=== PATIENT | male | born 1975 | race Caucasian/White ===

== ENCOUNTER 2018-07-16 09:48 | Outpatient (REF) | payer MEDICAID, SELFPAY ==
[2018-07-16 22:41] LABS: Anion Gap 6.7 mmol/L (3-11); BUN 11 mg/dL (7-18); CO2 31.3 mmol/L (21.0-32.0); CREATININE 1.02 mg/dL (0.70-1.30); Chloride 103 mmol/L (98-107); Cholesterol 211 mg/dL (50-200); Glucose 104 mg/dL (70-100); HDL Cholesterol 42 mg/dL (40-60); LDL CHOLESTEROL 142 mg/dL (<100); Potassium 4.4 mmol/L (3.5-5.1); Sodium 141 mmol/L (136-145); Triglyceride 191 mg/dL (30-150)
== END 2018-07-16 10:08 ==
LOC: NCHCN 09:48
PROVIDERS: PCP Specialist/Technologist Athletic Trainer; Visit Provider Specialist/Technologist Athletic Trainer
DX: I10 Essential (primary) hypertension (principal); E78.5 Hyperlipidemia, unspecified
CPT/HCPCS: 80048; 80061; 83721

== ENCOUNTER 2018-10-20 08:25 | Emergency (ER) | payer MEDICAID, SELFPAY ==
[2018-10-20 08:34] VITALS: BP 160/98; PULSE 98; RESP 90; TEMP 36.3; O2SAT 90
--- NOTE | 2018-10-20 09:13 | ED.GENADUL_ITS ---
Discharge Plan Disposition Patient Disposition: HOME Condition: Stable Discharge Details Chief Complaint: RespSymp Clinical Impression: Influenza, Asthma Primary Care Provider: Kemar Ray ED Provider: Sandy Awan Home Meds and New Rx's Prescriptions: New prednisone 20 mg tablet 60 mg PO DAILY Qty: 12 RF: 0 Continued bupropion HCl [Wellbutrin] 100 MG tablet 300 mg PO DAILY RF: 0 mirtazapine 30 MG tablet 30 mg PO HS RF: 0 lamotrigine 100 MG tablet 100 mg PO DAILY RF: 0 lisinopril 10 mg Tablet 10 mg PO DAILY RF: 0 prazosin 2 mg Capsule 4 mg PO DAILY RF: 0 aripiprazole [Abilify] 15 mg Tablet 15 mg PO DAILY RF: 0 Discharge Instructions Instructions: Albuterol (By breathing), Prednisone (By mouth), Asthma (ED), Influenza (ED) Additional Instructions: Please return immediately to the emergency department if you develop any new or worsening symptoms or if you become otherwise concerned. It is extremely important that you make an appointment to be seen as soon as possible in follow- up for this visit by your primary care doctor. Referrals: Kemar Ray [Primary Care Provider] - Medical Decision Making Gagandeep Soriano is a 42-year-old man with history of asthma, depression presenting to the emergency department with cough and shortness of breath for the past 10 days, patient denying pain other than burning chest pain that he associates with frequent coughing. On exam patient is well and nontoxic appearing, conversing normally. Benign cardiac exam, normal respiratory effort with wheezing throughout on auscultation. No posterior calf tenderness, trace lower extremity edema bilaterally. Concern for reactive airway disease, pneumonia, flu. Doubt PE or ACS. Exam/history is not consistent with acute aortic pathology, sepsis. Plan for EKG, chest x-ray, screening labs, DuoNeb. Will monitor and reassess. Patient reports feeling 100% better after DuoNeb. He reports all shortness of breath is resolved. On repeat exam patient with normal work of breathing, auscultation reveals lungs clear in all lazo. Heart rate 80. Influenza swab is positive. Chest x-ray per radiology negative for acute process. D-dimer elevated. I had a lengthy discussion with the patient regarding the significance of the elevated d-dimer, and a blood clot cannot be ruled out without CT of the chest. Patient reports that he feels much better, that his ride is waiting for him, and that he does not want to have CT performed at this time. He states that his chest pain is really only present when he is coughing. Given significant improvement in symptoms, low suspicion initially for PE, and elevated d-dimer explained by likely inflammatory process associated with influenza, I think it is reasonable to not pursue CT at this time. Patient requesting discharge home. Plan for asthma inhaler, prednisone. Given time course of illness, I do not think the patient would benefit from Tamiflu. I had a lengthy discussion with the patient regarding return to emergency department precautions, home care including importance of p.o. hydration, and importance of outpatient follow-up with his PCP as soon as possible. Patient verbalized understanding of the plan and is amenable. Medical Records Medical records reviewed: Yes I reviewed the patient's medical records. Imaging Data Radiologic Study: Attestation: I personally reviewed and interpreted this imaging study as follows: Radiologist's impression: Per radiology preliminary read CXR with no acute process Lab Data Lab results reviewed: Yes I reviewed the patient's lab results. 10/20/18 09:26 Nasopharynx Influenza Types A,B Antigen - Final Laboratory Tests Range/Units 10/20/18 10/20/18 10/20/18 10:20 10:20 10:20 WBC (4.4-10.8) k/cumm 6.02 RBC (4.50-6.00) m/cumm 5.75 Hgb (13.5-17.5) g/dL 16.7 Hct (40.0-50.0) % 50.3 H MCV (80-95) fL 87.5 MCH (27.0-33.0) pg 29.0 MCHC (32.0-36.0) g/dL 33.2 RDW (11.8-14.1) % 13.5 Plt Count (130-400) x1000/uL 169 MPV (8.0-11.0) fL 11.1 H Immature Gran % 0.2 Neutrophils % 56.1 Lymphocytes % 31.4 Monocytes % 9.3 Eosinophils % 2.8 Basophils % 0.2 Absolute Neutrophils (1.2-6.7) k/cumm 3.38 Absolute Lymphocytes (1.2-3.4) k/cumm 1.89 Absolute Monocytes (0.11-0.7) k/cumm 0.56 Absolute Eosinophils (0.0-0.7) k/cumm 0.17 Absolute Basophils (0.0-0.2) k/cumm 0.01 D-Dimer (<500) ng/mlFEU 787 H Sodium (136-145) mmol/L 139 Potassium (3.5-5.1) mmol/L 3.7 Chloride (98-107) mmol/L 95 L Carbon Dioxide (21.0-32.0) mmol/L 34.8 H Anion Gap (3-11) mmol/L 9.2 BUN (7-18) mg/dL 17 Creatinine (0.70-1.30) mg/dL 1.46 H Estimated GFR/1.73 m2 (mL/min/1.73m2) 52.45 Glucose (70-100) mg/dL 127 H Calcium (8.5-10.1) mg/dL 8.8 Total Bilirubin (0.2-1.0) mg/dL 0.4 AST (15-37) U/L 31 ALT (12-78) U/L 39 Alkaline Phosphatase (46-116) U/L 108 Troponin I (0.00-0.06) ng/mL < 0.02 Total Protein (6.4-8.2) g/dL 8.3 H Albumin (3.4-5.0) g/dL 3.6 ECG Data Attestation: I personally reviewed and interpreted this ECG (s) as follows: Interpretation: EKG shows normal sinus rhythm at 94, normal axis, no acute ischemic changes, nondiagnostic EKG HPI General Mode of arrival: ambulatory . Date/Time Provider Initiated Documentation: 10/20/18 09:12 . Limitations to Documentation: no limitations . Information obtained by: patient, RN notes reviewed and old records reviewed . HPI Narrative: Gagandeep Soriano is a 42 y/o man with history of asthma, depression presenting to the emergency department with shortness of breath and cough. Patient reports that he has had cough and shortness of breath for the past 10 or 12 days. He reports that his shortness of breath has been increasing over the past few days, and he feels short of breath when he walks just a few steps. His cough is nonproductive. He has had subjective fevers but has not measured his temperature. Patient also reports chest pain that he feels like is secondary to his cough, it is across his chest and burning in nature. Initially the pain was present only while coughing, but he states he has been coughing so much that now it is there all the time. Pain is nonexertional and nonpleuritic. He does report that his shortness of breath feels somewhat worse when he is lying flat in bed at night, although he is still sleeping with only one pillow as usual. Has been eating and drinking as usual for him. No recent travel. Patient did receive flu vaccine this year. Patient notes that he has a history of asthma, but has not had an inhaler for some time and has not been using any asthma medication at home. Related Data Home Medications Medication Instructions Recorded Confirmed bupropion HCl [Wellbutrin] 300 mg PO DAILY 05/12/14 10/20/18 lamotrigine 100 mg PO DAILY 09/28/14 10/20/18 mirtazapine 30 mg PO HS 09/28/14 10/20/18 aripiprazole [Abilify] 15 mg PO DAILY 10/20/18 10/20/18 lisinopril 10 mg PO DAILY 10/20/18 10/20/18 prazosin 4 mg PO DAILY 10/20/18 10/20/18 prednisone 60 mg PO DAILY #12 tab 10/20/18 Previous Rx's Medication Instructions Recorded prednisone 60 mg PO DAILY #12 tab 10/20/18 Allergies Allergy/AdvReac Type Severity Reaction Status Date / Time No Known Allergies Allergy Unverified 10/20/18 08:37 General Stated Complaint: RespSymp JOSE: 3 Review of Systems Review of Systems Constitutional: Reports subjective fevers Eyes: denies eye pain ENT: denies facial pain, dental pain, sore throat Cardiovascular: Reports chest pain, mild lower extremity edema over the past 2 weeks Respiratory: Reports SOB, cough GI: denies abdominal pain, vomiting, diarrhea : denies flank pain MSK: denies back pain, neck pain, arthralgias, myalgias Skin: denies rash Neuro: denies headaches, numbness, weakness PFSH Social History Smoking and Tabacco status: Current every day Exam Narrative Exam Narrative: Constitutional: well and [id number], pleasant, conversing normally HENT: head atraumatic/normocephalic/normal inspection, mucous membranes moist Eyes: conjunctiva normal, sclera normal, pupils 3mm b/l Neck: no stridor, normal ROM, trachea midline Chest: normal inspection Resp: Normal work of breathing, auditory wheeze bilaterally throughout, no rales or rhonchi Cardio: normal rate, normal rhythm, no murmur appreciated Back: normal inspection, no rash Skin: warm, dry, normal color, no rash Neuro: alert, not altered, grossly non-focal, normal tone Ext: trace edema b/l LEs, no posterior calf tenderness to palpation Psych: normal mood, normal affect, normal behavior Course Vital Signs Temperature 36.3 C L 10/20/18 08:34 Pulse 98 H 10/20/18 08:34 Respiratory Rate 90 H 10/20/18 08:34 Blood Pressure 160/98 H 10/20/18 08:34 Pulse Oximetry 90 L 10/20/18 08:34 Temperature 36.3 C L 10/20/18 08:34 Temperature Source Temporal Artery Scan 10/20/18 08:34 Pulse 98 H 10/20/18 08:34 Respiratory Rate 90 H 10/20/18 08:34 Respiratory Effort Incrsd Work of Breathing 10/20/18 09:01 Respiratory Depth Shallow 10/20/18 09:01 Blood Pressure 160/98 H 10/20/18 08:34 Blood Pressure Position Sitting 10/20/18 08:34 Pulse Oximetry 90 L 10/20/18 08:34 Oxygen Delivery Method Room Air 10/20/18 08:34 Oxygen Flow Rate 0 10/20/18 08:34 Pain Level 4 10/20/18 08:34
--- NOTE | 2018-10-20 09:21 | DI.RAD_ITS ---
SYMPTOM/DIAGNOSIS: COUGH, SOB PA AND LATERAL CHEST: Comparison is made with 12/16/16. The heart is normal in size. The lungs are clear. The mediastinal structures and pleura appear intact. CONCLUSION: Normal chest.
[2018-10-20 09:29] VITALS: PULSE 98; RESP 18; RESP 19; RESP 4; RESP 8; O2SAT 90
[2018-10-20] MEDS: Albuterol/Ipratropium 3 ML UPD VIAL UPD (09:29)
[2018-10-20 10:46] LABS: Abs Immature Grans 0.01 k/cumm (0.0-0.09); Absolute Basophil Count 0.01 k/cumm (0.0-0.2); Absolute Eosinophil Count 0.17 k/cumm (0.0-0.7); Absolute Lymphocyte Count 1.89 k/cumm (1.2-3.4); Absolute Monocyte Count 0.56 k/cumm (0.11-0.7); Absolute Neutrophil Count 3.38 k/cumm (1.2-6.7); Basophils % 0.2; Eosinophils % 2.8; HCT 50.3 % (40.0-50.0); HGB 16.7 g/dL (13.5-17.5); Immature Grans % 0.2; Lymphocytes % 31.4; Mean Corp. HGB Concentration 33.2 g/dL (32.0-36.0); Mean Corpuscular Volume 87.5 fL (80-95); Mean Platelet Volume 11.1 fL (8.0-11.0); Monocytes % 9.3; Neutrophils % 56.1; Platelet Count 169 x1000/uL (130-400); RBC 5.75 m/cumm (4.50-6.00); RBC Distribution Width 13.5 % (11.8-14.1); White Blood Cell Count 6.02 k/cumm (4.4-10.8)
[2018-10-20 10:55] LABS: ALT 39 U/L (12-78); AST 31 U/L (15-37); Albumin 3.6 g/dL (3.4-5.0); Alkaline Phosphatase 108 U/L (46-116); Anion Gap 9.2 mmol/L (3-11); BUN 17 mg/dL (7-18); Bilirubin, Total 0.4 mg/dL (0.2-1.0); CO2 34.8 mmol/L (21.0-32.0); CREATININE 1.46 mg/dL (0.70-1.30); Calcium 8.8 mg/dL (8.5-10.1); Chloride 95 mmol/L (98-107); Estimated GFR 52.45 (mL/min/1.73m2); Glucose 127 mg/dL (70-100); Potassium 3.7 mmol/L (3.5-5.1); Sodium 139 mmol/L (136-145); Total Protein 8.3 g/dL (6.4-8.2)
[2018-10-20 10:58] LABS: Troponin I < 0.02 ng/mL (0.00-0.06)
[2018-10-20 11:12] LABS: D-Dimer 787 ng/mlFEU (<500)
== END 2018-10-20 12:39 | disposition home or self-care (01) ==
PROVIDERS: Emergency Provider Student in an Organized Health Care Education/Training Program; PCP Specialist/Technologist Athletic Trainer
DX: R06.02 Shortness of breath (principal); R07.9 Chest pain, unspecified; J11.1 Influenza due to unidentified influenza virus with other respiratory manifestations; F17.210 Nicotine dependence, cigarettes, uncomplicated
CPT/HCPCS: 36415; 80053; 87449; 93005; 94640; 99285; 71046; 84484; 85025; 85379; 93010; 99284; J7620

== ENCOUNTER 2020-09-15 13:15 | Emergency (ER) | payer MEDICAID, SELFPAY ==
[2020-09-15 13:19] VITALS: BP 187/100; PULSE 91; RESP 22; TEMP 36.5; O2SAT 96
[2020-09-15] MEDS: Normal Saline 1,000 ML 1000 ML IV (13:29)
[2020-09-15] MEDS: Ketorolac 30 MG/ML VIAL 15 MG IVP (13:29)
--- NOTE | 2020-09-15 13:29 | W.ED.GENAD ---
Discharge Plan Disposition Patient Disposition: HOME Condition: Stable Discharge Details Clinical Impression: Walking pneumonia Primary Care Provider: Bart Almanza ED Provider: Jayjay Casas Home Meds and New Rx's Prescriptions: New cefpodoxime 200 mg tablet 200 mg PO BID 10 Days Qty: 20 RF: 0 Continued bupropion HCl [Wellbutrin] 100 MG tablet 300 mg PO DAILY RF: 0 mirtazapine 30 MG tablet 30 mg PO HS RF: 0 lamotrigine 100 MG tablet 100 mg PO DAILY RF: 0 lisinopril 10 mg Tablet 10 mg PO DAILY RF: 0 prazosin 2 mg Capsule 4 mg PO DAILY RF: 0 aripiprazole [Abilify] 15 mg Tablet 15 mg PO DAILY RF: 0 methadone 10 mg/mL Concentrate 50 mg PO DAILY RF: 0 Discharge Instructions Instructions: Pneumonia (ED) Additional Instructions: Your CAT scan showed evidence of left lower lobe pneumonia. Please take the antibiotics as prescribed until finished. Small, frequent fluids so that you maintain hydration. Tylenol and/or ibuprofen as needed for pain. Return for difficulty breathing or any other acute concerns. Stand Alone Forms: PENDING COVID-19 TESTING Medical Decision Making 44-year-old male presents with onset yesterday of left chest/left flank discomfort. Reports it is worse with a deep breath. No leg pain or swelling, no prolonged immobilization, no history of blood clots. No known sick contacts and no travel. He is a smoker with a chronic cough. He arrives to the ER afebrile, normal oxygenation, and some mild to moderate distress. He is tender overlying the left lateral thoracic cage. Differential diagnosis includes pulmonary embolism, ruptured pulmonary bleb, somewhat atypical presentation of renal colic. IV access established, screening labs obtained and patient given ketorolac and acetaminophen. Labs reveal normal white count of 8, hematocrit 46, platelets of 181. Chemistries unremarkable. D-dimer is elevated at 788. Given patient's complaints and location of pain, he is referred for CT imaging. CT: CT does not show PE. There are patchy groundglass nodules throughout the left lower lobe suggestive of pneumonia. I offered parenteral dose of antibiotic which the patient wishes to defer in order to get to work for his paycheck before the end of the day. He is not hypoxic. We will test him for coronavirus. I will start him on oral cephalosporin. He understands homecare as well as return precautions. Lab Data Lab results reviewed: Yes I reviewed the patient's lab results. Labs: Laboratory Results - last 24 hr 09/15/20 09/15/20 09/15/20 13:29 13:32 14:17 WBC RBC Hgb Hct MCV MCH MCHC RDW Plt Count MPV Immature Gran % Neutrophils % Lymphocytes % Monocytes % Eosinophils % Basophils % Nucleated RBC % Absolute Neutrophils Absolute Lymphocytes Absolute Monocytes Absolute Eosinophils Absolute Basophils PT INR APTT D-Dimer 788 H Sodium 140 Potassium 3.9 Chloride 103 Carbon Dioxide 30.5 Anion Gap 6.5 BUN 9 Creatinine 0.87 Estimated GFR/1.73 m2 >= 60.00 Glucose 105 Calcium 9.0 Total Bilirubin 0.9 AST 12 L ALT 24 Alkaline Phosphatase 109 Total Protein 7.4 Albumin 3.6 Urine Color Yellow Urine Clarity Clear Urine pH 7.0 Ur Specific [place] 1.025 Urine Protein Negative Urine Ketones Negative Urine Blood Negative Urine Nitrite Negative Urine Bilirubin Negative Urine Urobilinogen 0.2 Ur Leukocyte Esterase Negative Urine Glucose Negative 09/15/20 09/15/20 14:17 14:17 WBC 8.78 RBC 5.19 Hgb 15.1 Hct 46.2 MCV 89.0 MCH 29.1 MCHC 32.7 RDW 12.9 Plt Count 181 MPV 10.7 Immature Gran % 0.6 Neutrophils % 64.8 Lymphocytes % 25.2 Monocytes % 6.4 Eosinophils % 2.5 Basophils % 0.5 Nucleated RBC % 0 Absolute Neutrophils 5.70 Absolute Lymphocytes 2.21 Absolute Monocytes 0.56 Absolute Eosinophils 0.22 Absolute Basophils 0.04 PT 9.9 INR 1.0 APTT 25.2 D-Dimer Sodium Potassium Chloride Carbon Dioxide Anion Gap BUN Creatinine Estimated GFR/1.73 m2 Glucose Calcium Total Bilirubin AST ALT Alkaline Phosphatase Total Protein Albumin Urine Color Urine Clarity Urine pH Ur Specific [place] Urine Protein Urine Ketones Urine Blood Urine Nitrite Urine Bilirubin Urine Urobilinogen Ur Leukocyte Esterase Urine Glucose HPI General Mode of arrival: ambulatory. Date/Time Provider Initiated Documentation: 09/15/20 13:18. Information obtained by: patient. History of Present Illness 44 year old M presents to the emergency department with the chief complaint of Woke up yesterday with left flank and rib pain, it has been constant, described as moderate, Quality is described as dull and constant, and is localized to the left. Patient reports no radiation. Patient started experiencing this hour(s) and it has been constant. other things that improve symptom(s), (Lying flat) Other factors that worsen symptoms (Deep breath) . Patient notes other (Chronic cough. Unchanged. No production of sputum.); denies shortness of breath. Related Data Home Medications Medication Instructions Recorded Confirmed bupropion HCl [Wellbutrin] 300 mg PO DAILY 05/12/14 10/20/18 lamotrigine 100 mg PO DAILY 09/28/14 10/20/18 mirtazapine 30 mg PO HS 09/28/14 10/20/18 aripiprazole [Abilify] 15 mg PO DAILY 10/20/18 10/20/18 lisinopril 10 mg PO DAILY 10/20/18 10/20/18 prazosin 4 mg PO DAILY 10/20/18 10/20/18 cefpodoxime 200 mg PO BID 10 Days #20 tab 09/15/20 methadone 50 mg PO DAILY 09/15/20 09/15/20 Previous Rx's Medication Instructions Recorded cefpodoxime 200 mg PO BID 10 Days #20 tab 09/15/20 Allergies Allergy/AdvReac Type Severity Reaction Status Date / Time No Known Allergies Allergy Unverified 09/15/20 13:22 General Stated Complaint: FlankPain JOSE: 3 Review of Systems Narrative: Reports chronic smoker's cough that is unchanged. Eating and drinking okay. No change to urine. Denies fever or chills. No fall or injury. 8 systems reviewed and otherwise negative [facility] Social History Smoking/Tobacco Use Status: Current every day Smoking risk assessment performed?: Yes Alcohol Intake: never Drug use: Occasionally Substance use type: marijuana Do you feel safe at home: Yes Do you feel safe in your relationship?: Yes Exam Narrative Exam Narrative: GEN: awake, alert, oriented 3. Pleasant, well groomed, interactive. HEAD: Normocephalic, atraumatic ENT: Mucous membranes moist, oropharynx unremarkable, External ear exam unremarkable EYES: PERRL, EOMI NECK: Full ROM, no HERB, no menigismus CHEST/RESP: Tender left lateral thoracic cage, approximate anterior axillary line, clear to auscultation bilateral, no wheeze/rhonchi/rales CARDIOVASCULAR: RRR, no murmur, rub lula. 2+ Rad pulse bilateral ABDOMEN: Soft, nontender, no mass. +Bowel sounds EXT: Full ROM, no edema, no rash Neuro: Grossly normal neurologic exam, conversant, interactive. Psych: Speech fluent, thoughts congruent, affect normal Course Vital Signs Vital signs: Vital Signs Temperature 36.5 C 09/15/20 13:19 Pulse 91 H 09/15/20 13:19 Respiratory Rate 22 09/15/20 13:19 Blood Pressure 187/100 H 09/15/20 13:19 Pulse Oximetry 96 09/15/20 13:19 Temperature 36.5 C 09/15/20 13:19 Temperature Source Temporal Artery Scan 09/15/20 13:19 Pulse 91 H 09/15/20 13:19 Respiratory Rate 22 09/15/20 13:19 Respiratory Effort 09/15/20 13:25 Blood Pressure 187/100 H 09/15/20 13:19 Blood Pressure Position Sitting 09/15/20 13:19 Pulse Oximetry 96 09/15/20 13:19 Pain Level 9 09/15/20 13:19 Comment 09/15/20 13:19 Procedures Other Description: R brachial vein IV placed under ultrasound guidance
--- NOTE | 2020-09-15 13:30 | RT.EKG_ITS ---
APPROVED REPORT Exam: Resting ECG Patient Location: E HR:74 bpm ECG Measurements Heart Rate 74 AXIS NM 134 P 32 QRSd 99 QRS 35 QT 402 T 31 QTc 446 Conclusion Sinus rhythm...normal P axis, V-rate 60- 99
[2020-09-15 13:44] LABS: Bilirubin Negative (Negative); Blood Negative (Negative); Clarity Clear (Clear); Glucose Negative (Negative); Ketones Negative (Negative); Leukocyte Esterase Negative (Negative); Nitrite Negative (Negative); Specific Gravity 1.025 (1.005-1.025); Urobilinogen 0.2 EU/dL (Up TO 0.2)
--- NOTE | 2020-09-15 14:15 | ED.GENADUL_ITS ---
Discharge Plan Discharge Details Chief Complaint: FlankPain Primary Care Provider: Bart Almanza ED Provider: Jayjay Casas Home Meds and New Rx's Prescriptions: No Action bupropion HCl [Wellbutrin] 100 MG tablet 300 mg PO DAILY RF: 0 mirtazapine 30 MG tablet 30 mg PO HS RF: 0 lamotrigine 100 MG tablet 100 mg PO DAILY RF: 0 lisinopril 10 mg Tablet 10 mg PO DAILY RF: 0 prazosin 2 mg Capsule 4 mg PO DAILY RF: 0 aripiprazole [Abilify] 15 mg Tablet 15 mg PO DAILY RF: 0 methadone 10 mg/mL Concentrate 50 mg PO DAILY RF: 0 HPI General Mode of arrival: ambulatory . Date/Time Provider Initiated Documentation: 09/15/20 13:18 . Information obtained by: patient . History of Present Illness Quality is described as dull and constant, and is localized to the left. other things that improve symptom(s), (Lying flat) Other factors that worsen symptoms (Deep breath) . Patient notes other (Chronic cough. Unchanged. No production of sputum.); denies shortness of breath. Related Data Home Medications Medication Instructions Recorded Confirmed bupropion HCl [Wellbutrin] 300 mg PO DAILY 05/12/14 10/20/18 lamotrigine 100 mg PO DAILY 09/28/14 10/20/18 mirtazapine 30 mg PO HS 09/28/14 10/20/18 aripiprazole [Abilify] 15 mg PO DAILY 10/20/18 10/20/18 lisinopril 10 mg PO DAILY 10/20/18 10/20/18 prazosin 4 mg PO DAILY 10/20/18 10/20/18 methadone 50 mg PO DAILY 09/15/20 09/15/20 Allergies Allergy/AdvReac Type Severity Reaction Status Date / Time No Known Allergies Allergy Unverified 09/15/20 13:22 General Stated Complaint: FlankPain JOSE: 3 PFSH Social History Smoking/Tobacco Use Status: Current every day Smoking risk assessment performed?: Yes Alcohol Intake: never Drug use: Occasionally Substance use type: marijuana Do you feel safe at home: Yes Do you feel safe in your relationship?: Yes Exam Const General: cooperative and no acute distress HENMT Head: normocephalic and atraumatic Mouth: moist mucous membranes Eyes Conjunctivae: normal conjunctivae Sclera: normal sclerae Neck Neck: trachea not midline and supple Resp Auscultation: no rales, no rhonchi and no wheezes Cardio Jugular venous pressure: no JVD Rate: regular rate and not tachycardic Rhythm: regular rhythm GI Palpation: not firm, no guarding, no masses and rigid Skin General skin exam: no rashes or lesions noted Neuro General: patient alert, patient awake, patient oriented x3 and tone normal Extrem General: no edema Psych Appearance: grossly normal Mental Status: mental status grossly normal Speech and Movement: speech and movement normal Course Vital Signs Vital signs: Vital Signs Temperature 36.5 C 09/15/20 13:19 Pulse 91 H 09/15/20 13:19 Respiratory Rate 22 09/15/20 13:19 Blood Pressure 187/100 H 09/15/20 13:19 Pulse Oximetry 96 09/15/20 13:19 Temperature 36.5 C 09/15/20 13:19 Temperature Source Temporal Artery Scan 09/15/20 13:19 Pulse 91 H 09/15/20 13:19 Respiratory Rate 22 09/15/20 13:19 Respiratory Effort 09/15/20 13:25 Blood Pressure 187/100 H 09/15/20 13:19 Blood Pressure Position Sitting 09/15/20 13:19 Pulse Oximetry 96 09/15/20 13:19 Pain Level 9 09/15/20 13:19 Comment 09/15/20 13:19 Lab/Test Results Lab/Test Results: Laboratory Tests Range/Units 09/15/20 13:29 Urine Color (Yellow) Yellow Urine Clarity (Clear) Clear Urine pH (5-8) 7.0 Ur Specific [place] (1.005-1.025) 1.025 Urine Protein (Negative) mg/dL Negative Urine Ketones (Negative) mg/dL Negative Urine Blood (Negative) Negative Urine Nitrite (Negative) Negative Urine Bilirubin (Negative) Negative Urine Urobilinogen (Up TO 0.2) EU/dL 0.2 Ur Leukocyte Esterase (Negative) Negative Urine Glucose (Negative) mg/dL Negative
--- NOTE | 2020-09-15 14:16 | ED.GENADUL_ITS ---
Discharge Plan Discharge Details Chief Complaint: FlankPain Primary Care Provider: Bart Almanza ED Provider: Jayjay Casas Home Meds and New Rx's Prescriptions: No Action bupropion HCl [Wellbutrin] 100 MG tablet 300 mg PO DAILY RF: 0 mirtazapine 30 MG tablet 30 mg PO HS RF: 0 lamotrigine 100 MG tablet 100 mg PO DAILY RF: 0 lisinopril 10 mg Tablet 10 mg PO DAILY RF: 0 prazosin 2 mg Capsule 4 mg PO DAILY RF: 0 aripiprazole [Abilify] 15 mg Tablet 15 mg PO DAILY RF: 0 methadone 10 mg/mL Concentrate 50 mg PO DAILY RF: 0 HPI General Mode of arrival: ambulatory . Date/Time Provider Initiated Documentation: 09/15/20 13:18 . Information obtained by: patient . History of Present Illness Quality is described as dull and constant, and is localized to the left. other things that improve symptom(s), (Lying flat) Other factors that worsen symptoms (Deep breath) . Patient notes other (Chronic cough. Unchanged. No production of sputum.); denies shortness of breath. Related Data Home Medications Medication Instructions Recorded Confirmed bupropion HCl [Wellbutrin] 300 mg PO DAILY 05/12/14 10/20/18 lamotrigine 100 mg PO DAILY 09/28/14 10/20/18 mirtazapine 30 mg PO HS 09/28/14 10/20/18 aripiprazole [Abilify] 15 mg PO DAILY 10/20/18 10/20/18 lisinopril 10 mg PO DAILY 10/20/18 10/20/18 prazosin 4 mg PO DAILY 10/20/18 10/20/18 methadone 50 mg PO DAILY 09/15/20 09/15/20 Allergies Allergy/AdvReac Type Severity Reaction Status Date / Time No Known Allergies Allergy Unverified 09/15/20 13:22 General Stated Complaint: FlankPain JOSE: 3 PFSH Social History Smoking/Tobacco Use Status: Current every day Smoking risk assessment performed?: Yes Alcohol Intake: never Drug use: Occasionally Substance use type: marijuana Do you feel safe at home: Yes Do you feel safe in your relationship?: Yes Course Vital Signs Vital signs: Vital Signs Temperature 97.7 F 09/15/20 13:19 Pulse 91 H 09/15/20 13:19 Respiratory Rate 22 09/15/20 13:19 Blood Pressure 187/100 H 09/15/20 13:19 Pulse Oximetry 96 09/15/20 13:19 Temperature 97.7 F 09/15/20 13:19 Temperature Source Temporal Artery Scan 09/15/20 13:19 Pulse 91 H 09/15/20 13:19 Respiratory Rate 22 09/15/20 13:19 Respiratory Effort 09/15/20 13:25 Blood Pressure 187/100 H 09/15/20 13:19 Blood Pressure Position Sitting 09/15/20 13:19 Pulse Oximetry 96 09/15/20 13:19 Pain Level 9 09/15/20 13:19 Comment 09/15/20 13:19 Lab/Test Results Lab/Test Results: Laboratory Tests Range/Units 09/15/20 13:29 Urine Color (Yellow) Yellow Urine Clarity (Clear) Clear Urine pH (5-8) 7.0 Ur Specific [place] (1.005-1.025) 1.025 Urine Protein (Negative) mg/dL Negative Urine Ketones (Negative) mg/dL Negative Urine Blood (Negative) Negative Urine Nitrite (Negative) Negative Urine Bilirubin (Negative) Negative Urine Urobilinogen (Up TO 0.2) EU/dL 0.2 Ur Leukocyte Esterase (Negative) Negative Urine Glucose (Negative) mg/dL Negative
[2020-09-15 14:26] LABS: Abs Immature Grans 0.05 10^3/uL (0.0-0.06); Absolute Basophil Count 0.04 10^3/uL (0.0-0.2); Absolute Eosinophil Count 0.22 10^3/uL (0.0-0.7); Absolute Lymphocyte Count 2.21 10^3/uL (1.2-3.4); Absolute Monocyte Count 0.56 10^3/uL (0.1-0.8); Basophils % 0.5; Eosinophils % 2.5; HCT 46.2 % (40.0-50.0); HGB 15.1 g/dL (13.5-17.5); Immature Grans % 0.6; Lymphocytes % 25.2; MCH 29.1 pg (27.0-33.0); MCHC 32.7 % (32.0-36.0); MPV 10.7 fL (8.0-11.0); Monocytes % 6.4; Neutrophils % 64.8; Nucleated RBC 0 %; Platelet Count 181 10^3/uL (130-400); RBC 5.19 10^6/uL (4.36-5.78); RDW 12.9 % (11.8-14.1); RDW-SD 42.2 fL; WBC 8.78 10^3/uL (4.4-10.8)
[2020-09-15 14:40] LABS: Prothrombin Time 9.9 sec (9.3-11.0)
[2020-09-15 14:42] LABS: ALT 24 U/L (16-63); AST 12 U/L (15-37); Albumin 3.6 g/dL (3.4-5.0); Alkaline Phosphatase 109 U/L (46-116); Anion Gap 6.5 mmol/L (3-11); BUN 9 mg/dL (7-18); Bilirubin, Total 0.9 mg/dL (0.2-1.0); CO2 30.5 mmol/L (21.0-32.0); CREATININE 0.87 mg/dL (0.70-1.30); Chloride 103 mmol/L (98-107); Glucose 105 mg/dL (74-106); Potassium 3.9 mmol/L (3.5-5.1); Sodium 140 mmol/L (136-145); Total Protein 7.4 g/dL (6.4-8.2)
[2020-09-15 14:52] LABS: PTT Activated 25.2 sec (21.0-27.5)
[2020-09-15] MEDS: ACETAMINOPHEN 1,000 MG/100 ML BTL 400 MG IVPB (15:01)
[2020-09-15 15:13] LABS: D-Dimer 788 ng/mlFEU (<500)
--- NOTE | 2020-09-15 15:15 | DI.CT_ITS ---
EXAM: CT CHEST PE ABD PELVIS W CLINICAL HISTORY: L flank/CHest pain, elev ddimer. TECHNIQUE: Imaging Protocol: Axial CT angiography was performed with multi-slice acquisition and mu lti-planar and/or 3D reconstructions. CONTRAST MATERIAL: Intravenous: Omnipaque 350 Contrast volume:100 ml COMPARISON: CR XR CHEST 2V PA LATERAL from 10/20/2018 FINDINGS: CHEST: Pulmonary Arteries: No evidence of filling defect to suggest pulmonary emboli. Tracheobronchial tree: Patent where visualized. Mediastinum and Liliana: No dominant adenopathy or fluid collection. Pulmonary parenchyma: Pulmonary parenchyma: No consolidation or dominant measurable mass. Mild centrilobular emphysema. Mil d lingular atelectasis. Patchy infiltrates in the peripheral region left lower lobe. distortion. Pleura: No effusion or pneumothorax. Heart: The heart is not dilated. No coronary artery calcifications are seen. Aorta: Thoracic aorta non-dilated. Bones: Degenerative changes lower thoracic spine ABDOMEN: Liver: Mild hepatic steatosis. No measurable mass. Portal, Superior Mesenteric, and Splenic Veins: Unremarkable. Gallbladder and Biliary Tract: No radiodense calculus or dilation. Pancreas: Normal density, no abnormal calcifications or inflammatory process. Spleen: Normal. Adrenals: No masses seen. Kidneys: Normal size, contour and axis. No radiodense stones or obstructive uropathy. No masses seen. Abdominal Aorta: Abdominal portion non-dilated. Bowel: No obstruction or bowel wall thickening. Appendix is unremarkable. Mild diverticulosis. Peritoneal Cavity: No ascites, collection or mesenteric inflammatory response. Lymph Nodes: Within normal limits. Bones: Degenerative disc changes greatest at L4-5 and L5-S1. Soft Tissues: Unremarkable. PELVIS: Bladder: Symmetric distention, no gross wall thickening. Reproductive Organs: Unremarkable as visualized. Lymph Nodes: Within normal limits. Bones: Within normal limits. IMPRESSION: 1. No evidence of pulmonary embolism. Nonspecific left lower lobe infiltrates. 2. No acute abdominal or pelvic process. RADIATION DOSE DELIVERED: LINK-TO-SR Total DLP 1,919.17mGy.cm Total DLP DATA REPOSITORY: All CT scans at this facility are submitted to the National Radiology Data Registry (NRDR) Dose Index Registry (DIR) with the [employer] (ACR). RADIATION OPTIMIZATION: All CT scans at this facility use at least one of these dose optimization te chniques: automated exposure control; mA and/or kV adjustment per patient size (includes targeted exa ms where dose is matched to clinical indication); or iterative reconstruction.
[2020-09-15 15:30] VITALS: BP 132/72; PULSE 67; RESP 17; TEMP 37.1; O2SAT 93
[2020-09-15] MEDS: Omnipaque 350 MG/ML 100 ML BTL IJ (15:43)
[2020-09-15] MEDS: Normal Saline - Diluent 50 ML VIAL IV (15:43)
[2020-09-15] MEDS: Normal Saline Flush 10 ML SYR IVP (15:44)
--- NOTE | 2020-09-15 16:41 | DI.VRAD_ITS ---
PROCEDURE INFORMATION: Exam: CT Angiography Chest With Contrast Exam date and time: 09/15/2020 3:28 PM Age: 44 years old Clinical indication: Other: L flank/chest pain, elev ddimer TECHNIQUE: Imaging protocol: Computed tomographic angiography of the chest with intravenous contrast. 3D rendering (Not supervised by radiologist): MIP and/or 3D reconstructed images were created by the technologist. Contrast material: OMNIPAQUE 350; Contrast volume: 100 ml; Contrast route: INTRAVENOUS (IV); COMPARISON: CR XR CHEST 2V PA LATERAL 10/20/2018 9:48 AM FINDINGS: Pulmonary arteries: Contrast fills the pulmonary artery and its branch vessels satisfactorily. No intraluminal filling defect to suggest pulmonary embolism. Aorta: Unremarkable. No aortic aneurysm. No aortic dissection. Lungs: Mild centrilobular emphysema. Lingular atelectasis. Patchy peripheral ground-glass opacities throughout the left lower lobe suggestive of an atypical pneumonia. Pleural space: Unremarkable. No pneumothorax. No pleural effusion. Heart: Unremarkable. No cardiomegaly. No pericardial effusion. Lymph nodes: Bilateral reactive hilar and right paratracheal mediastinal lymph nodes. Bones/joints: Unremarkable. No acute fracture. Soft tissues: Unremarkable. IMPRESSION: 1. No pulmonary embolism. 2. Patchy ground-glass nodules throughout the left lower lobe suggestive of an atypical pneumonia.Imaging features can be seen with COVID-19 pneumonia, though are nonspecific and can occur with a variety of infectious and noninfectious processes. (Reference: Shady) REFERENCES: Shady Velazquez et al., Radiological Society of [place] Expert Consensus Statement on Reporting Chest CT Findings Related to COVID-19. Endorsed by the Society of Thoracic Radiology, the [employer], and RSNA. Published December 01, 2019. PROCEDURE INFORMATION: Exam: CT Angiography Abdomen With Contrast Exam date and time: 09/15/2020 3:28 PM Age: 44 years old Clinical indication: Other: L flank/chest pain, elev ddimer TECHNIQUE: Imaging protocol: Computed tomographic angiography images of the abdomen with intravenous contrast material. 3D rendering (Not supervised by radiologist): MIP and/or 3D reconstructed images were created by the technologist. Contrast material: OMNIPAQUE 350; Contrast volume: 100 ml; Contrast route: INTRAVENOUS (IV); COMPARISON: CR XR CHEST 2V PA LATERAL 10/20/2018 9:48 AM FINDINGS: Aorta: No aortic aneurysm. No aortic dissection. Celiac trunk and mesenteric arteries: No occlusion or significant stenosis. Renal arteries: No occlusion or significant stenosis. Liver: Mild generalized hepatic steatosis. Gallbladder and bile ducts: Normal. No calcified stones. No ductal dilation. Pancreas: Normal. No ductal dilation. Spleen: Normal. No splenomegaly. Adrenals: Normal. No mass. Kidneys and ureters: No renal, ureteric, or urinary bladder calculus. No hydronephrosis. Stomach and bowel: Scattered colonic diverticula. No colonic diverticulitis. Appendix: Normal appendix. No appendicitis. Lymph nodes: Unremarkable. No enlarged lymph nodes. IVC, bilateral iliac veins and visualized bilateral common femoral veins are patent. No deep venous thromboses. Intraperitoneal space: Unremarkable. No free air. No significant fluid collection. Bones/joints: Unremarkable. No acute fracture. No dislocation. Soft tissues: Unremarkable. IMPRESSION: 1. No acute abdominal or pelvic finding. 2. Mild generalized hepatic steatosis. Dictated and Authenticated by: Chang Kumar MD. Ordering:CINDA Ro MD
--- NOTE | 2020-09-15 16:50 | NUR.NOTE ---
Nursing Note: Referral faxed to PCP for follow up. Anna Marie Garcia
[2020-09-15] MEDS: Cefpodoxime 200 MG TAB PO (17:04)
[2020-09-16 15:50] LABS: COVID-19 RT-PCR Result NEGATIVE (Negative)
--- NOTE | 2020-09-17 07:54 | NUR.NOTE ---
Nursing Note: Message left to call ER for a test result
--- NOTE | 2020-09-19 08:22 | NUR.NOTE ---
09/19/20 @ 0820, after identity verification, relayed negative covid test results to him.
== END 2020-09-15 17:02 | disposition home or self-care (01) ==
PROVIDERS: Emergency Provider Emergency Medicine; PCP Physician Assistant Medical
DX: J18.8 Other pneumonia, unspecified organism (principal); R79.1 Abnormal coagulation profile; F17.210 Nicotine dependence, cigarettes, uncomplicated; Z03.818 Encounter for observation for suspected exposure to other biological agents ruled out
CPT/HCPCS: 36415; 71275; 74177; 80053; 93005; 96361; 96365; 96375; 99285; U0003; 81003; 85025; 85379; 85610; 85730; 93010; 99284; J0131; J1885; J3490

== ENCOUNTER 2020-12-11 13:57 | Emergency (ER) | payer MEDICAID, SELFPAY ==
[2020-12-11 14:02] VITALS: BP 157/107; PULSE 82; RESP 16; TEMP 36; O2SAT 96
--- NOTE | 2020-12-11 14:28 | W.ED.GENAD ---
Discharge Plan Disposition Patient Disposition: HOME Condition: Stable Discharge Details Clinical Impression: Headache, Hypertension Primary Care Provider: Bart Almanza ED Provider: Jovanna Celeste Home Meds and New Rx's Prescriptions: No Action methadone 10 mg/mL Concentrate 55 mg PO DAILY RF: 0 Discharge Instructions Instructions: Heart Healthy Diet (ED), Hypertension (ED), General Headache (ED) Additional Instructions: Follow up with primary care provider in 3-5 days. Return to ED sooner if any worsening or concerns. Increase oral fluids. Take nausea medications as directed. Please take Tylenol or Ibuprofen with food every 4-6 hours as needed for pain and swelling. You may also try Excedrin Migraine [id number]. Stand Alone Forms: Work Release Referrals: Bart Almanza PA [Primary Care Provider] - 1 week (HTN, Headaches) Discharge Data Discharge Date/Time-TO BE ENTERED AT DEPARTURE: 12/11/20 15:19 Medical Decision Making 45-year-old male presents to the ER with chief complaint left temporal headache which began on Friday. He denies any fever chills, no nuchal rigidity, he does have a past medical history of migraines he states that this feels similar to his previous migraines. He denies any nausea vomiting no blurry vision. Positive sensitivity to light and sound. He does take methadone daily. He states he did not take any medication prior to arrival. Zofran ODT 4 mg ordered and Toradol 10 mg p.o. ordered. 1458: Patient reevaluation, continues to be alert and oriented x4 alert and oriented in no acute distress. Recheck blood pressure is 149/107. He reports his pain is a 5 out of 10. He does have a primary care in [facility], he states that he has not taken blood pressure medications for approximately a year. 1 he is requesting a work note for today. He reports being on lisinopril previously. Discussed risks of having high blood pressure and follow-up with PCP he verbalizes understanding at this time. HPI General Mode of arrival: ambulatory. Date/Time Provider Initiated Documentation: 12/11/20 14:13. Limitations to Documentation: no limitations. Information obtained by: patient. HPI Narrative: 45-year-old male presents to the ER with chief complaint left temporal headache which began on Friday. He denies any fever chills, no nuchal rigidity, he does have a past medical history of migraines he states that this feels similar to his previous migraines. He denies any nausea vomiting no blurry vision. Positive sensitivity to light and sound. He does take methadone daily. He states he did not take any medication prior to arrival. Related Data Home Medications Medication Instructions Recorded Confirmed methadone 55 mg PO DAILY 09/15/20 12/11/20 Allergies Allergy/AdvReac Type Severity Reaction Status Date / Time No Known Allergies Allergy Unverified 12/11/20 14:09 General Stated Complaint: Headache JOSE: 3 Review of Systems Narrative: Constitutional: Negative for weight loss, alert and oriented, well groomed, normal body habitus, appears comfortable. HEENT: Denies trauma, blurry vision, nasal discharge, sore throat, trouble swallowing. Chest: Denies chest pain, palpitations, irregular rhythm, hypertension. Respiratory: Denies Shortness of breath, cough, hemoptysis. GI: Denies abdominal pain, nausea, vomiting, diarrhea, constipation. : Denies dysuria, hematuria, flank pain, rectal bleeding. Neuro: Denies dizziness, blurry vision, weakness, syncope, or facial numbness. Hematologic: Denies easy bruising, intolerance to heat or cold, hair loss. [facility] Social History Smoking/Tobacco Use Status: Current every day Tobacco Type: cigarettes Smoking risk assessment performed?: Yes Alcohol Intake: never Drug use: Occasionally Substance use type: marijuana Do you feel safe at home: Yes Do you feel safe in your relationship?: Yes Exam Narrative Exam Narrative: Constitutional: Alert and oriented x3. Appears stated age. Normal body habitus. Head: Normocephalic, no trauma. Eyes: Pupils PERRLA, Red reflex noted, EOM's intact. Eyelids symmetrical without lesions, discharge, or swelling. ENT: Bilateral TM's WNL, External ear normal to inspection, no mastoid TTP, swelling, or erythema, Nasal turbinates WNL, no nasal discharge. Poor dentition, Posterior pharynx WNL, no exudate. Chest: RRR, Normal S1, S2, distal pulses intact. Resp: Lungs clear to auscultation bilaterally, no wheezes, rales, or rhonchi. Musculoskeletal: Normal gait, 5/5 strength to all four extremities. Skin: No suspicious rashes or lesions. Capillary refill less than 2 sec. Neurologic: Cranial nerves II-XII intact. Alert and oriented x 3. DTR's intact. Complaining of left temporal headache, no nuchal rigidity. Hematologic/Lymphatic: No ecchymosis, no lymphadenopathy. Course Vital Signs Vital signs: Vital Signs Temperature 36.0 C L 12/11/20 14:02 Pulse 82 12/11/20 14:02 Respiratory Rate 16 12/11/20 14:02 Blood Pressure 157/107 H 12/11/20 14:02 Pulse Oximetry 96 12/11/20 14:02 Temperature 36.0 C L 12/11/20 14:02 Temperature Source Skin 12/11/20 14:02 Pulse 82 12/11/20 14:02 Respiratory Rate 16 12/11/20 14:02 Respiratory Effort 12/11/20 14:07 Blood Pressure 157/107 H 12/11/20 14:02 Blood Pressure Position Sitting 12/11/20 14:02 Pulse Oximetry 96 12/11/20 14:02 Oxygen Delivery Method Room Air 12/11/20 14:02 Oxygen Flow Rate 0 12/11/20 14:02 Pain Level 5 12/11/20 14:02
[2020-12-11] MEDS: Ondansetron O.D.T. 4 MG TABEF PO (14:34)
[2020-12-11] MEDS: Ketorolac 10 MG TAB PO (14:35)
[2020-12-11] MEDS: Ondansetron O.D.T. 4 MG TABEF, 3 TABS/BTL PO (15:18)
== END 2020-12-11 15:19 | disposition home or self-care (01) ==
PROVIDERS: Emergency Provider Registered Nurse Emergency; PCP Physician Assistant Medical
DX: G43.809 Other migraine, not intractable, without status migrainosus (principal); I10 Essential (primary) hypertension
CPT/HCPCS: 99283

== ENCOUNTER 2021-07-02 14:08 | Emergency (ER) | payer MEDICAID, SELFPAY ==
[2021-07-02] VITALS (16 sets, daily range): BP systolic 147–178; BP diastolic 82–110; PULSE 60–83; RESP 16; TEMP 36.3–36.7; O2SAT 95–99
[2021-07-02] MEDS: Normal Saline 1,000 ML 1000 ML IV (14:49)
[2021-07-02 14:56] LABS: Abs Immature Grans 0.02 10^3/uL (0.0-0.06); Absolute Basophil Count 0.04 10^3/uL (0.0-0.2); Absolute Eosinophil Count 0.29 10^3/uL (0.0-0.7); Absolute Lymphocyte Count 2.56 10^3/uL (1.2-3.4); Absolute Monocyte Count 0.44 10^3/uL (0.1-0.8); Absolute Neutrophil Count 4.25 10^3/uL (1.2-6.7); Basophils % 0.5; Eosinophils % 3.8; HCT 43.3 % (40.0-50.0); HGB 14.2 g/dL (13.5-17.5); Immature Grans % 0.3; Lymphocytes % 33.7; MCH 30.2 pg (27.0-33.0); MCHC 32.8 % (32.0-36.0); MCV 92.1 fL (80-95); Monocytes % 5.8; Neutrophils % 55.9; Nucleated RBC 0 %; Platelet Count 196 10^3/uL (130-400); RDW 12.8 % (11.8-14.1); RDW-SD 43.5 fL
[2021-07-02] MEDS: Prochlorperazine 10 MG/2 ML VIAL 5 MG IVP (14:56)
[2021-07-02] MEDS: ACETAMINOPHEN 1,000 MG/100 ML BTL 400 MG IVPB (14:58)
[2021-07-02 15:08] LABS: ALT 30 U/L (16-63); AST 14 U/L (15-37); Albumin 3.7 g/dL (3.4-5.0); Alkaline Phosphatase 122 U/L (46-116); Anion Gap 5.9 mmol/L (3-11); BUN 11 mg/dL (7-18); Bilirubin, Total 0.4 mg/dL (0.2-1.0); CO2 32.1 mmol/L (21.0-32.0); Calcium 8.5 mg/dL (8.5-10.1); Chloride 106 mmol/L (98-107); Glucose 108 mg/dL (74-106); Potassium 3.9 mmol/L (3.5-5.1); Sodium 144 mmol/L (136-145); Total Protein 6.8 g/dL (6.4-8.2)
--- NOTE | 2021-07-02 16:02 | W.ED.GENAD ---
Discharge Plan Disposition Patient Disposition: HOME Condition: Stable Discharge Details Clinical Impression: Headache Primary Care Provider: Bart Almanza ED Provider: Crystal Toure Home Meds and New Rx's Prescriptions: New prochlorperazine maleate [Compazine] 10 mg tablet 10 mg PO Q6H PRNQty: 10 RF: 0 Continued methadone 10 mg/mL Concentrate 55 mg PO DAILY RF: 0 Discharge Instructions Instructions: General Headache (ED) Additional Instructions: Call your doctor tomorrow to schedule a follow-up appointment I have also listed neurology for you to follow-up regarding your headache You may need to go back on your blood pressure medication, please have this rechecked You may take the Compazine with headache, every 8 hours You may also take ibuprofen 600 mg and Tylenol 650 mg We did not do a CT of your head today, if you have recurrent headache, I do recommend imaging Your diagnostic labs are within normal limits, your blood pressure is mildly elevated, this should be rechecked by your primary care doctor within the next week, I recommend calling them as you may need to go back on your lisinopril Stand Alone Forms: Work Release Referrals: Bart Almanza PA [Primary Care Provider] - Vicky Tanner MD [ [facility] STAFF PHYSICIAN] - Discharge Data Discharge Date/Time-TO BE ENTERED AT DEPARTURE: 07/02/21 16:35 Medical Decision Making Patient is completely pain-free after typical migraine cocktail, request discharge home, has not received head CT, I think reasonable He has not received any opiate analgesia He sent a prescription for Compazine for home He is discharged home in stable condition with nonfocal neurological exam and stable vitals He is referred to neurology in the outpatient setting and back to his primary care physician His blood pressure was mildly elevated evaluation, there is no evidence of hypertensive emergency He will need close outpatient reassessment of his blood pressure Diagnostic labs not show acute abnormality Medical Records Medical records reviewed: Yes I reviewed the patient's medical records. Lab Data Lab results reviewed: Yes I reviewed the patient's lab results. HPI General Mode of arrival: ambulatory. Date/Time Provider Initiated Documentation: 07/02/21 14:28. Limitations to Documentation: no limitations. Information obtained by: patient. HPI Narrative: This 45-year-old male presents for evaluation of headache. Denies chest pain or shortness of breath. Denies dizziness or weakness. Denies any stiff neck or vision change. Denies fever or chills. Denies cough. Has attempted Tylenol at home without alleviation in symptoms. States that he was previously prescribed medication for headache but has not been able to fill it as insurance will cover it. He have been previously told that he has migraine headaches. He denies any strength or sensation change. Related Data Home Medications Medication Instructions Recorded Confirmed methadone 55 mg PO DAILY 09/15/20 07/02/21 prochlorperazine maleate 10 mg PO Q6H PRN #10 tab 07/02/21 [Compazine] Previous Rx's Medication Instructions Recorded prochlorperazine maleate 10 mg PO Q6H PRN #10 tab 07/02/21 [Compazine] Allergies Allergy/AdvReac Type Severity Reaction Status Date / Time No Known Allergies Allergy Unverified 07/02/21 14:13 General Stated Complaint: Headache JOSE: 2 Review of Systems Narrative: Review of systems obtained x7 and negative aside from where indicated in HPI [facility] Social History Smoking/Tobacco Use Status: Current every day Tobacco Type: cigarettes Smoking risk assessment performed?: Yes Alcohol Intake: never Drug use: Occasionally Substance use type: marijuana Do you feel safe at home: Yes Do you feel safe in your relationship?: Yes Exam Const General: cooperative and no acute distress Eyes Pupils: PERRL Resp Effort & Inspection: normal respiratory effort Auscultation: clear to auscultation bilaterally Cardio Rate: regular rate Rhythm: regular rhythm GI Inspection: normal to inspection Auscultation: normal bowel sounds Skin General skin exam: no rashes or lesions noted Neuro General: patient alert and patient oriented x3 Cranial Nerves: CN's II-XI intact bilaterally Gait: normal gait Motor: muscle tone normal throughout and strength 5/5 throughout Sensory Exam: no sensory deficits noted Psych Appearance: grossly normal Course Vital Signs Vital signs: Vital Signs Temperature 36.7 C 07/02/21 14:11 Pulse 83 07/02/21 14:11 Respiratory Rate 16 07/02/21 14:11 Blood Pressure 177/106 H 07/02/21 14:11 Pulse Oximetry 95 07/02/21 14:11 Temperature 36.3 C L 07/02/21 15:58 Temperature Source Skin 07/02/21 15:47 Pulse 67 07/02/21 15:58 Respiratory Rate 16 07/02/21 15:58 Respiratory Effort Non-Labored 07/02/21 14:13 Blood Pressure 148/95 H 07/02/21 15:58 Blood Pressure Mean 97 07/02/21 15:45 Blood Pressure Position Sitting 07/02/21 14:11 Pulse Oximetry 97 07/02/21 15:58 Oxygen Delivery Method Room Air 07/02/21 15:47 Oxygen Flow Rate 0 07/02/21 15:47 Pain Level 0 07/02/21 15:58 Lab/Test Results Lab/Test Results: Laboratory Tests Range/Units 07/02/21 07/02/21 14:40 14:40 WBC (4.4-10.8) 10^3/uL 7.60 RBC (4.36-5.78) 10^6/uL 4.70 Hgb (13.5-17.5) g/dL 14.2 Hct (40.0-50.0) % 43.3 MCV (80-95) fL 92.1 MCH (27.0-33.0) pg 30.2 MCHC (32.0-36.0) % 32.8 RDW (11.8-14.1) % 12.8 Plt Count (130-400) 10^3/uL 196 MPV (8.0-11.0) fL 11.0 Immature Gran % 0.3 Neutrophils % 55.9 Lymphocytes % 33.7 Monocytes % 5.8 Eosinophils % 3.8 Basophils % 0.5 Nucleated RBC % % 0 Absolute Neutrophils (1.2-6.7) 10^3/uL 4.25 Absolute Lymphocytes (1.2-3.4) 10^3/uL 2.56 Absolute Monocytes (0.1-0.8) 10^3/uL 0.44 Absolute Eosinophils (0.0-0.7) 10^3/uL 0.29 Absolute Basophils (0.0-0.2) 10^3/uL 0.04 Sodium (136-145) mmol/L 144 Potassium (3.5-5.1) mmol/L 3.9 Chloride (98-107) mmol/L 106 Carbon Dioxide (21.0-32.0) mmol/L 32.1 H Anion Gap (3-11) mmol/L 5.9 BUN (7-18) mg/dL 11 Creatinine (0.70-1.30) mg/dL 1.0 Estimated GFR/1.73 m2 (mL/min/1.73m2) >= 60.00 Glucose (74-106) mg/dL 108 H Calcium (8.5-10.1) mg/dL 8.5 Total Bilirubin (0.2-1.0) mg/dL 0.4 AST (15-37) U/L 14 L ALT (16-63) U/L 30 Alkaline Phosphatase (46-116) U/L 122 H Total Protein (6.4-8.2) g/dL 6.8 Albumin (3.4-5.0) g/dL 3.7
== END 2021-07-02 16:35 | disposition home or self-care (01) ==
PROVIDERS: Emergency Provider Physician Assistant; PCP Physician Assistant Medical
DX: R51.9 Headache, unspecified (principal); R11.2 Nausea with vomiting, unspecified
CPT/HCPCS: 36415; 80053; 96361; 96374; 96375; 99284; 85025; 99283; J0131; J0780